=== PATIENT | female | born 1990 | race African-American/Black ===

== ENCOUNTER 2019-04-30 09:49 | Emergency (ER) | payer OTHER ==
[2019-04-30 10:05] VITALS: BP 103/59; PULSE 90; TEMP 98.1; BMI 32.3
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
== END 2019-04-30 10:44 | disposition home or self-care (01) ==
LOC: JERFT 09:49
DX: K14.6 Glossodynia (principal)
CPT/HCPCS: 99281-25